=== PATIENT | male | born 1965 | race Caucasian/White ===

== ENCOUNTER 2017-03-21 11:22 | Emergency (ER) | payer SELFPAY ==
[2017-03-21 11:53] LABS: BASOPHIL 1.4 % (0-2); EOSINOPHIL 0 % (0-5); HCT 45.4 % (42.0-52.0); HGB 16.5 g/dl (13.2-18.0); LYMPHOCYTE 24.2 % (15-48); MCH 31.6 pg (25.0-31.0); MCHC 36.3 g/dL (32.0-36.0); MONOCYTE 7.6 % (0-12); MPV 10.4 fL (6.0-9.5); NEUTROPHIL 66.8 % (41-80); PLT 88 K/uL (150-400); RBC 5.22 M/uL (4.70-6.00); WBC 3.6 K/uL (4.0-10.5)
[2017-03-21 12:07] LABS: BILIRUBIN 1+ mg/dL (NEGATIVE); BLOOD 3+ Ery/uL (NEGATIVE); CLARITY CLEAR (CLEAR); COLOR AMBER (YELLOW); GLUCOSE (U) NORMAL (NORMAL); KETONE (U) TRACE mg/dL (NEGATIVE); LEUKOCYTES NEGATIVE Leu/uL (NEGATIVE); NITRITE NEGATIVE (NEGATIVE); PROTEIN 3+ mg/dL (NEGATIVE); SPECIFIC GRAVITY 1.025 (1.001-1.030)
[2017-03-21 12:09] LABS: ALBUMIN 3.9 g/dL (3.5-5.0); BILIRUBIN - TOTAL 0.4 mg/dL (0.1-1.0); GLOBULIN (CALCULATION) 3.1 g/dL (2.2-4.2); POTASSIUM 3.8 mmol/L (3.5-5.1)
[2017-03-21 12:13] LABS: URINARY RBC 20-50
[2017-03-21 12:14] LABS: SPERM PRESENT
[2017-03-21 12:15] LABS: BACTERIA TRACE; SQUAMOUS EPITHELIAL CELLS RARE
== END 2017-03-21 15:08 | disposition home or self-care (01) ==
LOC: FER 11:22
PROVIDERS: Internal Medicine
DX: N20.0 Calculus of kidney (principal); R50.9 Fever, unspecified
CPT/HCPCS: 36415; 71020; 80053; 81001; 82150; 83605; 83690; 85025; 87040